=== PATIENT | female | born 1930 | race African-American/Black ===

== ENCOUNTER → 2017-11-23 | Outpatient (CLI) | payer OTHER ==
[~2017-11-23] VITALS: Ht 154.9 cm; Wt 80.2 kg
[~2017-11-23] MED LIST: ALEVE220 MG; AMARYL2 MG OR; CIPROFLOXIN HC2.5 M1 OPHTHALMIC; FLEXERIL PO; GLUCOPHAGE1000 MG OR; LISINOPRIL10 MG OR; NORCO 5-325 TA1 EACH PO; NORVASC 5 MG TAB5 MG OR; PRAVACHOL40 MG OR; PREDNISONE 20 M20 MG PO; VENTOLIN HFA 1818 GM INH; VICODIN 5-5001 EACH PO
--- NOTE | ~2017-11-23 | HPC ---
[facility] [place] [address] PAIN MANAGEMENT CONSULTATION Name: JOANN KING Room #: REG JOSE M.R.#: [id number] Admission: 11/23/17 Attend Phys: Asia Maldonado MD Discharge: Date of : 31 Report #: [id number] THIS REPORT FOR: //name// CC: Erich Maldonado DATE OF SERVICE: 11/23/2017 FOLLOWUP COMPLAINT: Low back pain that is radiating down into the right side and some aching in the right knee. FOLLOWUP HISTORY: The patient is an 87-year-old female who has been seen in the pain clinic in the past. She is followed by Song Bullard. She has undergone epidural steroid injections and gleaned benefits from these. She returns today indicating that her pain has reoccurred. She is experiencing pain which is radiating down into the lower portion of her back into the right side and down into the right knee area. She rates it as an 8/10. She notes problems with walking, standing and notes that the pain improves with use of sitting and medications. She has continued to use Naprosyn to help curtail her pain and discomfort. She has not noticed any change in bowel or bladder function. She would like to undergo another epidural steroid injection in that she received such good results in the past. She would like for this to drastically reduce her pain, which has been the case in the past. ALLERGIES: SULFA. CURRENT MEDICATIONS: Naprosyn 220 mg p.r.n. and lisinopril 10 mg. PAIN CLINIC ASSESSMENT: 1. History of osteoarthritis with arthritic changes in her right knee. 2. Height 5 feet 1 inch, weight 176 pounds, BMI is 33. 3. Vital Signs: Blood pressure 108/83, pulse 102, respiratory rate 16, room air saturation 98%. 4. Pain intensity 02/24. 5. Fall risk. The patient has not fallen in the last 3 months. 6. Blood thinning. The patient is not on a blood thinner. 7. Hypertension. The patient is being treated for hypertension. 8. Opioid therapy greater than 6 weeks. The patient is not on an opioid contract. 9. Risk assessment tool, low. 10. Functional assessment tool. 11. Recreational drug use: The patient denies use of recreational drug use. 12. Tobacco: The patient denies use of tobacco. 13. Alcohol use: The patient denies frequent use of alcoholic beverages. [facility] [address] [place] [address] PAIN MANAGEMENT CONSULTATION Name: JOANN KING Room #: REG [facility]#: [id number] Admission: 11/23/17 Attend Phys: Asia Maldonado MD Discharge: Date of : 31 Report #: [id number] PHYSICAL EXAMINATION: GENERAL: The patient is a well-developed, well-nourished black female. Slightly obese. She has fluent conversation. She is alert and oriented x 3. Affect appears appropriate. HEENT: Normocephalic, atraumatic. Extraocular eye muscles are intact. Sclerae nonicteric. Hearing, within normal limits. The patient has a quite unique hair arrangement. NECK: Good range of motion without adenopathy. HEART: Regular rate. S1, S2. CHEST: Clear to auscultation without rhonchi or rales. ABDOMEN: Slightly protuberant. EXTREMITIES: Upper extremity muscle strength is judged to be 5/5 for 86-year-old female without sensory complaints or changes. Lower extremity, the patient has pain and discomfort which is radiating down into her right side involving her knee as well as pain radiating down into her legs bilaterally with numbness and sensory changes in the lower extremity. She also has a trigger point area in the left posterior superior iliac spine area to palpation. IMPRESSION: 1. Lumbar radiculopathy involving the low back area bilaterally. 2. Right knee pain. The patient states this has been injected in the past. 3. Hypertension. RECOMMENDATIONS: We discussed treatment options with the patient. Risks and benefits of an epidural steroid injection were reviewed. Possible complication of the procedure, which could include but are not limited to infection, increased muscle soreness, headache, bleeding, spinal headache, nerve damage, paralysis were reviewed. The patient elects to proceed. PROCEDURE NOTE: The patient was taken to the fluoroscopy area. She was assisted on to the fluoroscopy table. Her back was sterilely prepped with a Betadine solution and allowed to dry. Anterior and posterior viewing using fluoroscopy as well as lateral viewing was used to direct needle placement. At the L4-L5 interspace, 0.25% bupivacaine was infiltrated. A midline approach was sighted. A total of 80 mg Depo-Medrol, 40 mg triamcinolone and 2 mL 0.25% bupivacaine was injected. Total of 5 seconds fluoro time was used. The patient tolerated the procedure well. She remained in the pain clinic for an appropriate amount of time. Her pain level had decreased to 0 at the time of discharge. She will follow up in the future as needed. We would like to thank you for letting us participate in her care. We hope she continues to improve. <ELECTRONICALLY SIGNED> By: Asia Maldonado MD 11/25/17 0902 1632 15 Asia Maldonado MD /PMT
[2017-11-23 08:54] VITALS: BP 108/83
== END | disposition home or self-care (01) ==
LOC: PAIN 07:32
DX: M54.16 Radiculopathy, lumbar region (principal); G89.29 Other chronic pain; M25.561 Pain in right knee; I10 Essential (primary) hypertension; Z88.2 Allergy status to sulfonamides; Z98.890 Other specified postprocedural states; Z79.899 Other long term (current) drug therapy; Z79.891 Long term (current) use of opiate analgesic

== ENCOUNTER 2017-12-03 10:36 | Inpatient (IN) | payer OTHER ==
[~2017-12-03] VITALS: Ht 154.9 cm; Wt 81.9 kg
--- NOTE | ~2017-12-03 | HC ---
[facility] [place] [address] CONSULTATION Name: JOANN KING Room #: 204-P [facility] IN M.R.#: [id number] Admission: 12/03/17 Attend Phys: Matty Vega MD Discharge: 12/06/17 Date of : 31 Report #: [id number] THIS REPORT FOR: //name// CC: Erich Vega REASON FOR CONSULTATION: Atrial fibrillation. HISTORY OF PRESENT ILLNESS: The patient is an 87-year-old woman with a 2-week history of a nonproductive cough and shortness of breath. She has had audible wheezing for the past several days. She presented to the Emergency Department to get something for cold and was found to be in atrial fibrillation with a rapid ventricular response. Chest x-ray demonstrated minimal left lower lobe subsegmental atelectasis. CT scan of the chest demonstrated right upper and right lower lobe pulmonary emboli and patchy left lower lobe infiltrates suggesting pneumonitis. There was a large 5 x 4.5 cm left supraclavicular mass. Lower extremity venous Dopplers are negative for deep venous thrombosis. She denies shortness of breath. She denies leg pain. There has been no recent travel or immobility. No family history of blood clots. She denies a bleeding problem. She reports blood pressures have been well controlled with lisinopril, her only medicine. There are no significant hospitalizations or surgeries other than remote resection of a sigmoid carcinoma laparoscopically. SOCIAL HISTORY: She is nonsmoker, nondrinker. FAMILY HISTORY: Unremarkable for premature coronary artery disease or clotting disorders. REVIEW OF SYSTEMS: All systems negative except as that noted above. PHYSICAL EXAMINATION: GENERAL: A pleasant woman who is alert. She is mildly dyspneic. VITAL SIGNS: Blood pressure is 140/90, heart rate of 97 and irregular. She is afebrile. HEENT: There are neither xanthelasma, subcutaneous xanthomata, oral mucosal or digital cyanosis or kyphoscoliosis present. CHEST: Reveals mid end expiratory wheezes. CARDIAC: Irregularly irregular rhythm with normal S1, S2. Jugular venous pressure is not elevated. ABDOMEN: Soft and nontender. EXTREMITIES: Without cyanosis, clubbing or edema. Radial pulses are 2+. NEUROLOGIC: She is alert with a nonfocal exam. LABORATORY DATA: Sodium 138, potassium 4.6, creatinine 1.1. ProBNP of 2800. Troponin of 0. White count 7.9, hemoglobin 13, hematocrit 41, platelet count 259. TSH 0.716. [facility] [address] [place] [address] CONSULTATION Name: JAONN KING Room #: 204-[facility]#: [id number] Admission: 12/03/17 Attend Phys: Matty Vega MD Discharge: 12/06/17 Date of : 31 Report #: [id number] IMPRESSION: 1. Pulmonary emboli, unprovoked. 2. Atrial fibrillation with a rapid ventricular response, likely precipitated by #1 above. 3. Hypertension. 4. Sigmoid cancer excision, remotely. 5. Left supraclavicular mass. 6. Hypercoagulable. RECOMMENDATIONS: 1. Change from intravenous to oral Cardizem. 2. There are 2 indications for anticoagulant therapy that being atrial fibrillation and pulmonary emboli. 3. Echocardiogram with Doppler has been ordered. At this point given the asymptomatic nature of her atrial fibrillation, a rate control strategy is recommended. I suspect that this will probably be the long-term recommendation given the asymptomatic nature of this rhythm disturbance. These issues were discussed with the patient and her family in detail. Thank you for asking me to participate in her care. <ELECTRONICALLY SIGNED> By: Blaise Bob MD, FACC 12/07/17 0801 1734 28 Blaise Bob MD, FACC /nt
--- NOTE | ~2017-12-03 | EKG ---
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: 12 : 1930 Requested By: Vernon Rao Order Number: [id number] MD: Blaise Bob Measurements Intervals [place] Rate: 139 P: [place]: QRS: -12 QRSD: 68 T: 43 QT: 297 QTc: 452 Interpretive Statements Atrial fibrillation Ventricular premature complex Low voltage, extremity leads Compared to ECG 06/28/2011 06:55:55 Ventricular premature complex(es) now present Atrial fibrillation has replaced sinus rhythm Electronically Signed On 12-04-2017 10:10:51 CDT by Blaise Bob [email or web address] <ELECTRONICALLY SIGNED> By: Blaise Bob MD, [facility] 12/04/17 1010 1054 1054 Blaise Bob MD, [facility] /EPI
--- NOTE | ~2017-12-03 | 2DMMODE ---
[facility] [address] [place] [address] 2 D/M-MODE ECHOCARDIOGRAM Name: JOANN KING Room #: 204-P ADM IN ..#: [id number] Admission: 12/03/17 Attend Phys: Matty Vega MD Discharge: Date of : 31 Date of Service: 12/05/17 0838 Report #: [id number] THIS REPORT FOR: //name// APPROVED REPORT Study performed: 12/05/2017 07:09:45 EXAM: Comprehensive 2D, Doppler, and color-flow Echocardiogram Patient Location: Bedside Room #: 204 Status: routine BSA: 1.81 HR: 107 bpm BP: 162/103 mmHg Rhythm: Atrial Fibrillation Other Information Study Quality: Good Indications Pulmonary embolism. Afib. 2D Dimensions RVDd: 36.79 mm LVEF(%): 66.58 (>50%) IVSd: 9.30 (7-11mm) LVOT Diam: 20.10 (18-24mm) LVDd: 43.83 mm PWd: 9.81 (7-11mm) Ascending Ao: 37.05 (22-36mm) LVDs: 27.81 (25-40mm) Aortic Root: 32.97 mm Mondragon's LVEF: 66.58 % Volumes Left Atrial Volume (Systole) Single Plane 4CH: 72.31 mL Single Plane 2CH: 83.27 mL LA ESV Index: 45.00 mL/m2 Aortic Valve AoV Peak Jose De Jesus.: 1.42 m/s AO Peak Gr.: 9.31 mmHg LVOT Max P.56 mmHg LVOT Max V: 1.07 m/s TONIE Vmax: 2.39 cm2 Mitral Valve MV Decel. Time: 190.73 ms MV E Max Jose De Jesus.: 1.21 m/s [facility] [place] [address] 2 D/M-MODE ECHOCARDIOGRAM Name: JOANN KING Room #: 204-P ADM IN M.R.#: [id number] Admission: 12/03/17 Attend Phys: Matty Vega MD Discharge: Date of : 31 Date of Service: 12/05/17 0838 Report #: [id number] Pulmonary Valve PV Peak Jose De Jesus.: 1.03 m/s PV Peak Gr.: 4.24 mmHg Tricuspid Valve TR Peak Jose De Jesus.: 3.20 m/s RAP Estimate: 5.00 mmHg TR Peak Gr.: 42.00 mmHg PA Pressure: 47.00 mmHg Left Ventricle The left ventricle is normal size. There is normal LV segmental wall motion. Mild basal septal hypertrophy is present. Left ventricular systolic function is normal. LVEF is 65%. This study is not technically sufficient to allow evaluation of the LV diastolic function due to atrial fibrillation. Right Ventricle The right ventricle is normal size. The right ventricular systolic function is normal. Atria Left atrium is moderately dilated. Right atrium is mildly dilated. Aortic Valve The aortic valve is moderately sclerotic, trileaflet. No aortic regurgitation is present. There is no aortic valvular stenosis. Mitral Valve The mitral valve is normal in structure. Mild mitral regurgitation. No evidence of mitral valve stenosis. Tricuspid Valve The tricuspid valve is normal in structure. Moderate tricuspid regurgitation. Estimated PAP is 45-50mmHg. Pulmonic Valve The pulmonary valve is normal in structure. Trace pulmonic regurgitation. Great Vessels The aortic root is normal in size. The ascending aorta is normal in size. IVC is normal in size and collapses >50% with inspiration. [facility] [address] [place] [address] 2 D/M-MODE ECHOCARDIOGRAM Name: JOANN KING Room #: 204-P [facility] IN M.R.#: [id number] Admission: 12/03/17 Attend Phys: Matty Vega MD Discharge: Date of : 31 Date of Service: 12/05/17 0838 Report #: [id number] Pericardium There is no pericardial effusion. <Conclusion> Left ventricular systolic function is normal. There is normal LV segmental wall motion. LVEF is 65%. Both atria are dilated. The aortic valve is moderately sclerotic, trileaflet. No aortic regurgitation or stenosis The mitral valve is normal in structure. Mild mitral regurgitation. Moderate tricuspid regurgitation. Estimated pulmonary artery pressure of 45-50mmHg. There is no pericardial effusion. <ELECTRONICALLY SIGNED> By: Blaise Bob MD, [facility] 12/05/17837 7 7 Blaise Bob MD, [facility] /INF
--- NOTE | ~2017-12-03 | EKG ---
[address] [address] ELECTROCARDIOGRAM REPORT Name: JOANN KING Room #: 204-P ADM IN M.R.#: [id number] Admission: 12/03/17 Attend Phys: Matty Vega MD Discharge: Date of : 31 Report #: [id number] THIS REPORT FOR: //name// [facility] Test Date: 2017-12-04 Test Time: 10:30:27 Pat Name: JOANN KING Department: Room: 204 Gender: F Physician Assistant Primary Care: MARY : 1930 Requested By: Blaise Bob Order Number: [id number] MD: Venancio Arellano Measurements Intervals [place] Rate: 110 P: [place]: QRS: -9 QRSD: 70 T: -4 QT: 332 QTc: 450 Interpretive Statements Atrial fibrillation Probable anterior infarct, age indeterminate Compared to ECG 12/03/2017 10:54:42 Myocardial infarct finding now present Ventricular premature complex(es) no longer present Electronically Signed On 12-05-2017 7:01:09 CDT by Venancio Arellano [email or web address] <ELECTRONICALLY SIGNED> By: Venancio Arellano MD 12/05/17 0701 1030 1030 Venancio Arellano MD /EPI
[2017-12-03 10:45] VITALS: BP 184/116
[2017-12-03 11:18] LABS: HEMATOCRIT 41.8 % (37.0-47.0); HEMOGLOBIN 13.9 gm/dL (12.0-15.0); MCHC 33.2 g/dL (28.0-37.0); MCV 90.5 fL (80.0-100.0); PLATELET COUNT 259 thou/uL (150-400); RBC 4.62 mil/uL (4.20-5.00); RDW 15.1 % (10.5-14.5); WBC 7.9 thou/uL (4.0-11.0)
[2017-12-03 11:27] LABS: ANION GAP 8 mmol/L (7-16); BUN 21 mg/dL (7-18); CALCIUM 9.8 mg/dL (8.5-10.1); CHLORIDE 106 mmol/L (98-107); CO2 24 mmol/L (21-32); CREATININE 1.1 mg/dL (0.6-1.0); GLUCOSE 173 mg/dL (74-106); POTASSIUM 4.6 mmol/L (3.5-5.1); SODIUM 138 mmol/L (136-145)
[2017-12-03 11:35] LABS: TROPONIN-I < 0.04 ng/mL (<0.06)
[2017-12-03 11:43] LABS: ABSOLUTE NEUTROPHILS 5.4 thou/uL (1.4-8.2)
[2017-12-03 11:44] LABS: ANISOCYTOSIS 1+; POLYCHROMASIA OCCASIONAL
[2017-12-03 14:02] VITALS: BP 156/84
[2017-12-03 14:28] VITALS: BP 156/84
[2017-12-03 15:35] VITALS: BP 146/91
[2017-12-03 17:19] VITALS: BP 167/94
[2017-12-03 19:38] VITALS: BP 155/98
[2017-12-04] VITALS (7 sets, daily range): BP systolic 128–176; BP diastolic 70–106
[2017-12-04 04:30] LABS: HEMOGLOBIN 13.2 gm/dL (12.0-15.0); MCH 29.7 pg (26.0-34.0); MCV 92.6 fL (80.0-100.0); RBC 4.43 mil/uL (4.20-5.00); RDW 15.5 % (10.5-14.5); WBC 7.7 thou/uL (4.0-11.0)
[2017-12-04 04:39] LABS: CALCIUM 9.8 mg/dL (8.5-10.1); CREATININE 1.3 mg/dL (0.6-1.0); POTASSIUM 4.2 mmol/L (3.5-5.1)
[2017-12-05 04:12] VITALS: BP 162/103
[2017-12-05 16:17] VITALS: BP 134/91
[2017-12-05 19:45] VITALS: BP 134/84
[2017-12-06 04:13] LABS: CALCIUM 9.5 mg/dL (8.5-10.1); CREATININE 1.2 mg/dL (0.6-1.0)
[2017-12-06 04:23] VITALS: BP 133/83
[2017-12-06 04:26] LABS: ABSOLUTE NEUTROPHILS 5.7 thou/uL (1.4-8.2); BASOPHILS 0.1 % (0.0-2.0); HEMATOCRIT 37.2 % (37.0-47.0); HEMOGLOBIN 12.1 gm/dL (12.0-15.0); LYMPHOCYTES 7.7 % (24.0-44.0); MCH 29.9 pg (26.0-34.0); MCHC 32.5 g/dL (28.0-37.0); MCV 92.3 fL (80.0-100.0); PLATELET COUNT 244 thou/uL (150-400); POLYS 88.2 % (36.0-66.0); RBC 4.03 mil/uL (4.20-5.00); RDW 15.3 % (10.5-14.5); WBC 6.5 thou/uL (4.0-11.0)
[2017-12-06 08:50] VITALS: BP 127/81
[2017-12-06] MEDS ORDERED: AZITHROMYCIN 2250 MG PO (09:45)
[2017-12-06] MEDS ORDERED: KEFLEX500 M1 PO (09:45)
[2017-12-06] MEDS ORDERED: XARELTO15 MG PO (09:46)
[2017-12-06] MEDS ORDERED: XARELTO20 MG PO (09:46)
[2017-12-06] MEDS ORDERED: HYDROCHLOROTH12.5 M1 PO (09:47)
[2017-12-06 10:39] VITALS: BP 127/81
[2017-12-06 11:14] VITALS: BP 127/81
[2017-12-07 04:11] LABS: GLYCOHEMOGLOBIN (HGB A1C) 6.8 % (4.8-5.6)
== END 2017-12-06 12:25 | disposition home health service (06) | DRG 871 ==
LOC: ER 10:36 → EROBS 13:35 → 2N 13:35 → ENTRNSPT 12-06 11:36 → EDTRNSPTSTS 12-06 11:39 → 2N 12-06 12:25
PROVIDERS: Family Medicine; Hospitalist; Nurse Practitioner
DX: A41.9 Sepsis, unspecified organism (principal); I26.99 Other pulmonary embolism without acute cor pulmonale; J18.9 Pneumonia, unspecified organism; D68.59 Other primary thrombophilia; I48.91 Unspecified atrial fibrillation; I10 Essential (primary) hypertension; E11.9 Type 2 diabetes mellitus without complications; E07.9 Disorder of thyroid, unspecified; Z60.2 Problems related to living alone; F32.9 Major depressive disorder, single episode, unspecified; R91.1 Solitary pulmonary nodule; Z79.899 Other long term (current) drug therapy; Z88.2 Allergy status to sulfonamides; Z85.038 Personal history of other malignant neoplasm of large intestine
CPT/HCPCS: 10194

== ENCOUNTER 2019-05-22 11:18 | Inpatient (IN) | payer OTHER ==
[~2019-05-22] VITALS: Ht 175.3 cm; Wt 67.6 kg
[2019-05-22] VITALS (32 sets, daily range): BP systolic 101–149; BP diastolic 56–102
--- NOTE | ~2019-05-22 | HC ---
[facility] [place] [address] [place] [address] CONSULTATION Name: JOANN KING Room #: 208- ADM IN M.R.#: [id number] Admission: 05/22/19 Attend Phys: Antony Darden MD Discharge: Date of : 31 Report #: [id number] THIS REPORT FOR: //name// CC: Antony Do REQUESTING PHYSICIAN: Dr. Darden. 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 She also had AFib with RVR on admit. She was apparently nonadherent to her regimen at her prior facility for medication treatment. However, the patient has not had significant improvement in her overall responsiveness or ability to participate in therapy. She has had a Dobbhoff placed since then for nutritional value. However, family is favoring at this time a palliative care approach. The patient is currently not able to respond in a meaningful manner with regards to my questions. PAST MEDICAL HISTORY: Atrial fibrillation, hypertension, history of pulmonary embolism, history of sigmoid cancer in remission. SOCIAL HISTORY: Lives [place]. Daughter is present for my interview, has both the granddaughter and grandson. I did speak with granddaughter as well. MEDICATIONS: Pepcid, Eliquis, Toprol, Cardizem. ALLERGIES: SULFA. FAMILY HISTORY: Noncontributory. REVIEW OF SYSTEMS: Gen, unable to obtain review of systems at this point in time due to responsiveness. PHYSICAL EXAMINATION: Includes: VITAL SIGNS: Temperature 37.4, pulse 98, respirations 18, blood pressure 151/94, 96% on nasal cannula. GENERAL: The patient will awaken to verbal stimuli, certainly unable to ascertain orientation at this time. She does not appear to be in distress currently. HEENT: No scleral icterus appreciated, no conjunctival injection. CARDIOVASCULAR: Appears to be slightly tachycardic at this time and irregularly irregular rate and rhythm. RESPIRATORY: Lungs appear to be clear to auscultation at least anteriorly. ABDOMEN: Soft, nondistended, appears to have no grimacing to palpation. [address] [address] CONSULTATION Name: JOANN KING Room #: [facility] ADM IN M.R.#: [id number] Admission: 05/22/19 Attend Phys: Antony Darden MD Discharge: Date of : 31 Report #: [id number] LABORATORY DATA: These include on May 22 creatinine 2.2. Most recent hemoglobin 11.7. Most recent creatinine 1.3, potassium 3.4. ASSESSMENT AND PLAN: 1. Cerebrovascular accident, appears to be catastrophic in nature. It would be difficult to say her recovery ability; however, it appears that that is not a likely scenario in which the patient would have to recovery to the quality of life that her family and the patient would be acceptable at this point in time. Discussed approximately 40 minutes at advanced care planning with daughter, granddaughter and then discussed with social media marketing manager with regards to code status, which is confirmed to be DNR and that they wished to either go to an inpatient hospice facility, which is possible that the patient would not be accepted to if not a long-term care with the ability to have hospice there. They are definitely favoring hospice in either case and did discuss measures to progress towards including the potential addition of Roxanol and Ativan if needed to see the transition between facility and inpatient hospice. We will at this time write for morphine and Ativan. 2. Aspiration pneumonia, again likely secondary to above, overall portends a poor prognosis for the patient. 3. Left hemiparesis. Again, the patient with a dense hemiparesis at this time, possible rehabilitation would be very difficult. 4. Dysphagia. Again, this contributes to overall rehabilitation ability at this time. Thank you very much for this consultation. Please contact me for any further questions regarding this patient. By: 21 7 Vipin Crockett DO /nt
[~2019-05-22 11:18] MED LIST changes: +AZITHROMYCIN 2250 MG PO; +HYDROCHLOROTH12.5 M1 PO; +KEFLEX500 M1 PO; +XARELTO15 MG PO; +XARELTO20 MG PO
[2019-05-22 11:32] LABS: BE(vivo) -2.3 mmol/L (-2 to +3); HCO3 22.9 mmol/L (22.0-26.0); PCO2 41.1 mmHg (35.0-45.0); PO2 417.5 mmHg (80.0-100.0); pH 7.364 (7.360-7.450); sO2 99.8 % (92.0-98.0)
[2019-05-22 11:41] LABS: ABSOLUTE NEUTROPHILS 10.4 thou/uL (1.4-8.2); BASOPHILS 0.3 % (0.0-2.0); HEMATOCRIT 51.7 % (37.0-47.0); HEMOGLOBIN 16.8 gm/dL (12.0-15.0); LYMPHOCYTES 3.6 % (24.0-44.0); MCH 29.9 pg (26.0-34.0); MCHC 32.5 g/dL (28.0-37.0); MCV 91.9 fL (80.0-100.0); MONOCYTES 11.1 % (1.0-8.0); PLATELET COUNT 132 thou/uL (150-400); RBC 5.63 mil/uL (4.20-5.00); RDW 15.5 % (10.5-14.5); WBC 12.2 thou/uL (4.0-11.0)
[2019-05-22 11:49] LABS: CALCIUM 11.4 mg/dL (8.5-10.1); CREATININE 2.2 mg/dL (0.6-1.0); POTASSIUM 4.3 mmol/L (3.5-5.1); URINE BLOOD NEGATIVE (Negative); URINE COLOR YELLOW; URINE GLUCOSE-RANDOM* NEGATIVE (Negative); URINE KETONES NEGATIVE (Negative); URINE LEUKOCYTES-REFLEX NEGATIVE (Negative); URINE NITRITE-REFLEX NEGATIVE (Negative); URINE PROTEIN (DIPSTICK) TRACE (Negative); URINE SPECIFIC GRAVITY >= 1.030 (1.005-1.035)
[2019-05-22 11:51] LABS: URINE BILIRUBIN NEGATIVE (Negative); URINE CLARITY SL HAZY
[2019-05-22 11:52] LABS: ICTOTEST (BILI CONFIRMATORY) Negative (Negative)
[2019-05-22 11:59] LABS: ALBUMIN 3.2 g/dL (3.4-5.0); TOTAL PROTEIN 7.7 g/dL (6.4-8.2); TROPONIN-I 0.33 ng/mL (<0.06)
[2019-05-22 12:11] LABS: AMP/METHAMP Negative (Negative); BARBITURATES Negative (Negative); BENZODIAZEPINES Negative (Negative); COCAINE Negative (Negative); METHADONE Negative (Negative); OPIATES Negative (Negative); PCP Negative (Negative)
--- NOTE | 2019-05-22 15:01 | NUR ---
TESHA KING (DAUGHTER) - [id number]
--- NOTE | 2019-05-22 17:07 | EKG ---
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 Engineer: SHARITA : 1930 Requested By: Suresh Edwards Order Number: [id number] MD: Blaise Bob Measurements Intervals [place] Rate: 144 P: [place]: QRS: -3 QRSD: 89 T: 141 QT: 316 QTc: 489 Interpretive Statements Atrial fibrillation with rapid V-rate Repolarization abnormality, prob rate related Compared to ECG 12/04/2017 10:30:27 ST and T wave abnormality is more prominent Electronically Signed On 05-22-2019 17:07:20 FIRE SPRINKLER DESIGNER by Blaise Bob [email or web address] <ELECTRONICALLY SIGNED> By: Blaise Bob MD, [facility] 05/22/19 6327 1121 1121 Blaise Bob MD, [facility] /EPI
--- NOTE | 2019-05-22 18:13 | NUR ---
Patient arrived to ICU after receiving report from ED staff. ADMISSION CRITERIA DOCUMENTED. FAMILY AND FRIENDS VISITING PATIENT. CARDIZEM GTT INFUSING. PLAN OF CARE IS TO CONTINUE TO MONITOR PATIENT NEUROLOGIC STATUS, MONITOR RHYTHM AND RATE, AND OXYGENATION. PATIENT GOAL IS TO IMRPOVE MENTAL AWARENESS AND PHYSICAL MOVEMENT.
--- NOTE | 2019-05-22 22:58 | NUR ---
PT MORE RESPONSIVE CURRENTLY. ABLE TO RESPOND TO NAME, FOLLOW SIMPLE COMMANDS SUCH SQUEEZING MY HAND WITH HER RIGHT HAND, AND ABLE TO FEEL ME TOUCH HER RIGHT SIDE. SPEECH DIFFICULT TO UNDERSTAND MOST TIMES. C COLLAR IN PLACE, AND PT IS RESTLESS AT TIMES. NOTED MOVEMENT OF RIGHT ARM AND LEG, UNABLE TO RAISE ON COMMAND. NO NOTED MOVEMENT ON LEFT SIDE OF BODY. WEAK COUGH, ASSIST WITH COUGHING AND DEEP BREATHING WHILE AWAKE. NIH SCALE CHARTED. ON VENTIMASK AT 35%, SATS ABOVE 90%. NOTED ABNORMAL POSITIONING OF LEFT HIP, TALKED TO JOAQUÍN YIN AT 2255, XR OF HIP/PELVIS ORDERED FOR AM. SPINAL PRECAUTIONS MAINTIANED WITH TURNS. PT EDUCATED ABOUT POSITIONING, PAIN, AND SITUATION. WILL CONTINUE TO MONITOR.
[2019-05-23] VITALS (84 sets, daily range): BP systolic 96–159; BP diastolic 46–110
[2019-05-23 06:11] LABS: CREATININE 1.8 mg/dL (0.6-1.0); MAGNESIUM 1.9 mg/dL (1.8-2.4); POTASSIUM 3.6 mmol/L (3.5-5.1)
[2019-05-23 06:16] LABS: CHOLESTEROL 200 mg/dL (<200); HDL CHOLESTEROL 31 mg/dL (>40); LDL CHOLESTEROL 129 mg/dL (<100); TC:HDL 6.5 Ratio (Not establshd); TRIGLYCERIDE 200 mg/dL (<150); VLDL 40 mg/dL (<40)
[2019-05-23 06:19] LABS: SERUM ASSESSMENT Clear
[2019-05-23 07:01] LABS: MCH 29.7 pg (26.0-34.0); MCV 92.8 fL (80.0-100.0); RBC 4.64 mil/uL (4.20-5.00); RDW 15.7 % (10.5-14.5); WBC 8.4 thou/uL (4.0-11.0)
[2019-05-23 07:10] LABS: GLYCOHEMOGLOBIN (HGB A1C) 5.9 % (4.8-5.6)
[2019-05-23 07:19] LABS: HEMOGLOBIN 13.8 gm/dL (12.0-15.0)
--- NOTE | 2019-05-23 09:45 | NUR ---
Was off unit to MRI from approximately 804 until 934. C-Spine precautions maintained during transfers and test. She was monitored with cardiac and o2 saturation during MRI.
--- NOTE | 2019-05-23 10:53 | NUR ---
Case opened to follow for dc planning. Pt is currently in ICU d/t CVA. Workup in progress. Lidder visited with the pt's dtr Christal. She indicates that the pt has lived indep in a [facility] for 30[facility] years. She has no steps to enter but 12 up to her bedroom/bath. She has a cane she keeps in the car but does not use an assistive device. She has reported some falls in the past few months. 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 She manages her own meds and day to day adl's. Dtr lives locally and is supportive. She takes her to dr reza and helps with errands. She is aware that the pt will likely need some level of rehab and may not be able to return to her current living situation. Cm role introduced. Will ask for rehab and therapy evals as appropriate. Pt's pcp is Dr. Do.
--- NOTE | 2019-05-23 10:55 | 2DMMODE ---
[facility] [place] [employer] [place] [address] 2 D/M-MODE ECHOCARDIOGRAM Name: JOANN KING Room #: 247-P ADM IN M.R.#: [id number] Admission: 05/22/19 Attend Phys: Antony Darden MD Discharge: Date of : 31 Report #: [id number] THIS REPORT FOR: //name// APPROVED REPORT Study performed: 05/23/2019 09:32:54 EXAM: Comprehensive 2D, Doppler, and color-flow Echocardiogram Patient Location: ICU Room #: [facility] Status: routine BSA: 1.79 HR: 108 bpm BP: 139/79 mmHg Rhythm: Atrial Fibrillation Other Information Study Quality: Good Indications Afib with RVR, CVA. Hx: Afib, HTN, PE. Echo Enhancing Agent Indication: Rule out Shunt Agent(s) / Amount(s) Used: Agitated Saline 6 cc 2D Dimensions RVDd: 37.54 mm IVSd: 12.00 (7-11mm) LVOT Diam: 20.87 (18-24mm) LVDd: 35.00 mm PWd: 12.00 (7-11mm) Ascending Ao: 36.64 (22-36mm) LVDs: 25.06 (25-40mm) Aortic Root: 33.65 mm Volumes Left Atrial Volume (Systole) Single Plane 4CH: 68.59 mL Single Plane 2CH: 93.90 mL LA ESV Index: 47.00 mL/m2 Aortic Valve AoV Peak Jose De Jesus.: 1.53 m/s AO Peak Gr.: 9.47 mmHg LVOT Max P.82 mmHg LVOT Max V: 0.83 m/s TONIE Vmax: 1.85 cm2 [facility] [address] [place] [address] 2 D/M-MODE ECHOCARDIOGRAM Name: JOANN KING Room #: [address] [place] [address] IN ..#: [id number] Admission: 05/22/19 Attend Phys: Antony Darden MD Discharge: Date of : 31 Report #: [id number] Mitral Valve MV Decel. Time: 193.82 ms MV E Max Jose De Jesus.: 0.95 m/s Pulmonary Valve PV Peak Jose De Jesus.: 0.95 m/s PV Peak Gr.: 3.61 mmHg Tricuspid Valve TR Peak Jose De Jesus.: 3.21 m/s RAP Estimate: 5.00 mmHg TR Peak Gr.: 41.16 mmHg PA Pressure: 46.00 mmHg Left Ventricle The left ventricle is normal size. Mild concentric left ventricular hypertrophy. The left ventricular systolic function is normal. LVEF is 50-55%. This study is not technically sufficient to allow evaluation of the LV diastolic function due to atrial fibrillation. Right Ventricle The right ventricle is normal size. The right ventricular systolic function is low normal. Atria Left atrium is severely dilated. No shunting noted by contrast bubble injection. Right atrium is moderately dilated. Aortic Valve The Aortic valve is moderately sclerotic. Trace aortic regurgitation. There is no aortic valvular stenosis. Mitral Valve The mitral valve is normal in structure; mildly thickened. Mild mitral regurgitation. Tricuspid Valve The tricuspid valve is normal in structure. Moderate tricuspid regurgitation. Estimated PAP is 45-50mmHg. Pulmonic Valve The pulmonary valve is normal in structure. Trace pulmonic regurgitation. Great Vessels The aortic root is normal in size. The ascending aorta is normal in size. IVC is normal in size and collapses >50% with [facility] [address] [place] [address] 2 D/M-MODE ECHOCARDIOGRAM Name: JOANN KING Room #: 247-P ADM IN M.R.#: [id number] Admission: 05/22/19 Attend Phys: Antony Darden MD Discharge: Date of : 31 Report #: [id number] inspiration. Pericardium There is no pericardial effusion. <Conclusion> The left ventricle is normal size. LVEF is 50-55%. Left atrium is severely dilated. Right atrium is moderately dilated. The Aortic valve is moderately sclerotic. Trace aortic regurgitation. The mitral valve is normal in structure; mildly thickened. Mild mitral regurgitation. The tricuspid valve is normal in structure. Moderate tricuspid regurgitation. Estimated PAP is 45-50mmHg. The pulmonary valve is normal in structure. Trace pulmonic regurgitation. There is no pericardial effusion. No shunting noted by contrast bubble injection. <ELECTRONICALLY SIGNED> By: Dominic Echols MD 05/23/19 1055 1055 1055 Dominic Echols MD /INF
--- NOTE | 2019-05-23 17:01 | NUR ---
NURSE UPDATED PATIENTS DAUGHTER THIS AFTERNOON. NURSE TALKED WITH DR. CRAWFORD ABOUT CARDIZEM GTT, BLOOD PRESSURE, NEURO STATUS, AND BLOOD GLUCOSE LEVEL TODAY. NURSE THEN GAVE REPORT TO ANOTHER RN FOR CONTINUATION OF CARE.
[2019-05-24] VITALS (19 sets, daily range): BP systolic 106–172; BP diastolic 48–96
--- NOTE | 2019-05-24 04:16 | NUR ---
PT DROWSY, RESPONSE TO NAME OCCASIONALLY. DOESN'T FOLLOW COMMANFS. NIH @ 22, FULL MOVEMENT OF RIGHT SIDE. MINIMAL MOVEMENT OF LEFT LEG NOTED. DENIED PAIN WHEN ASK. VSS. AFEBRILE. UNABLE TO CLEAR SECRETIONS CURRENTLY. TOLERATING 2L NC. NO COMPLAINS PRESENTLY. WILL CONTINUE TO MONITOR PT
[2019-05-24 05:23] LABS: HEMATOCRIT 40.4 % (37.0-47.0); HEMOGLOBIN 12.8 gm/dL (12.0-15.0); MCH 29.4 pg (26.0-34.0); MCHC 31.6 g/dL (28.0-37.0); RBC 4.34 mil/uL (4.20-5.00); RDW 15.9 % (10.5-14.5); WBC 7.2 thou/uL (4.0-11.0)
[2019-05-24 05:29] LABS: CALCIUM 10.9 mg/dL (8.5-10.1); CREATININE 1.5 mg/dL (0.6-1.0); POTASSIUM 3.8 mmol/L (3.5-5.1)
--- NOTE | 2019-05-24 18:25 | NUR ---
PATIENT REMAINS DROWSY AND ONLY FOLLOWING COMMANDS AT TIMES. PATIENT WAS ABLE TO WAKE UP AND ANSWER SOME YES/NO QUESTIONS. NIH HAS BEEN 20 THROUGHOUT MY SHIFT. PATIENT NOT AWARE OF LEFT SIDE OF BODY. MRI OF HEAD COMPLETE AND SHOWS AN ACUTE STROKE TO RIGHT POSTIOR PARIETAL AND TEMPORAL LOBES. UNABLE TO DO SWALLOW STUDY TODAY AND IT DOES NOT SEEM THAT THE PATIENT CAN CLEAR HER OWN SECREATIONS. PATIENT HAS BEEN IN A CONTROLLED AFIB FOR THIS SHIFT. NO FURTHER CONCERNS. WILL CONTINUE TO MONITOR AND CARE PER PLAN OF CARE.
--- NOTE | 2019-05-24 22:38 | NUR ---
Patient drowsy and only makes incomprehensible sounds when spoken to although she does weakly squeeze this RN's hand with her right hand and move her right toes. No movement noted on the left side. Patient's daughter updated on current status. VS stable and no distress is noted. Will continue to monitor.
[2019-05-25] VITALS (17 sets, daily range): BP systolic 93–163; BP diastolic 56–86
[2019-05-25 08:37] LABS: HEMATOCRIT 38.4 % (37.0-47.0); HEMOGLOBIN 12.2 gm/dL (12.0-15.0); MCH 29.6 pg (26.0-34.0); MCHC 31.7 g/dL (28.0-37.0); MCV 93.4 fL (80.0-100.0); RBC 4.11 mil/uL (4.20-5.00); RDW 15.8 % (10.5-14.5); WBC 7.6 thou/uL (4.0-11.0)
--- NOTE | 2019-05-25 09:25 | NUR ---
Pt has been npo 4 days and no oral intake estimated 3 days prior admit. If going to pursue aggressive treatment, would recommend dobhoff and start jevity 1.5 at 25ml/hr and progress to goal 55ml/hr. Defer any fluid needs to physician.
--- NOTE | 2019-05-25 12:21 | EKG ---
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: HIEN : 1930 Requested By: Nakul Nair Order Number: [id number] MD: Horacio Oliveros Measurements Intervals Ralph Rate: 98 P: GA: QRS: -42 QRSD: 84 T: 198 QT: 375 QTc: 479 Interpretive Statements Atrial fibrillation Inferior infarct, old Anterior infarct, age indeterminate Compared to ECG 05/22/2019 11:21:31 Myocardial infarct finding now present Early repolarization no longer present Electronically Signed On 05-25-2019 12:21:06 REEL ASSEMBLER by Horacio Oliveros [email or web address] <ELECTRONICALLY SIGNED> By: Horacio Oliveros MD 05/25/19 1221 4 4 Horacio Oliveros MD /SILVIA
--- NOTE | 2019-05-25 18:07 | NUR ---
PATIENT REPORT CALLED TO JACINTO DIXON ON CCU FOR CONTINUATION OF CARE. SHE WAS TAKEN TO NEW ROOM VIA BED WITH ONE WIG, AND ONE PART OF HER DENTURES. PATIENTS DAUGHTER TOOK HOME ANOTHER WIG, HER HAIR NET, AND HER HAIR BONNET. NURSE TALKED WITH DR. IRVIN, DR. ORTEGA, AND DR. CRAWFORD ABOUT ANTICOAGULATION. NO NEW ORDERS AT THIS TIME, SECONDARY TO HER PLATELET COUNT PER DR. CRAWFORD. NURSE TALKED WITH DR. ORTEGA ABOUT NUTRITION. DOBHOFF PLACED AND XRAY CONFIRMED PLACEMENT. JEVITY TO BE STARTED. PATIENT NOT PROGRESSING TOWARDS PLAN OF CARE OF IMPROVED NEURO STATUS, INCREASED STAMINA FOR HELPING WITH ACTIVITY, OR IMPROVING AIRWAY CLEARANCE FROM A COUGH STANDPOINT. PATIENTS DAUGHTER UPDATED ABOUT PATIENTS STATUS WELL PATIENT MOVING TO A NEW ROOM.
--- NOTE | 2019-05-25 18:27 | NUR ---
PT CARE ASSUMED APPROX 1800. PT DOES NOT SUSTAIN WAKELFULNESS OR VERBALIZE. VSS. AFIB ON THE MONITOR WITH CONTROLLED RATES. PT DOES NOT APPEAR UNCOMFORTABLE. MICHEAL PATENT. DARLEEN PATENT. AWAITING TUBE FEEDING ORDERS PER ICU NURSE THAT TRANSFERRRED PT. IVF RESUMED. NO DISTRESS NOTED.
[2019-05-26 00:07] VITALS: BP 130/64
--- NOTE | 2019-05-26 05:07 | NUR ---
SHIFT NOTE: PATIENT RESTING WITH NO ACUTE DISTRESS. RECEIVED IN BED. WITH ASSESSMENT PT OPEN EYES OCCASSIONALLY BUT DOES NOT FOLLOW COMMANDS. SOME SPONTANOUS MOVEMENT NOTED OCCASSIONALLY. REMAIN NON VERBAL. INCOMPREHENSIVE SOUNDS NOTED. RESTING WITH NO S/S OF PAIN/DISCOMFORT.CHECK AND CHANGE WITH REPOSITIONING Q2HR AND PRN.WOUND NOTED TO THE LEFT SIDE OF HER FACE AND LEFT BREAST.TUBE FEEDING AND TOLERATING. NO MAJOR CONCERN. WILL CONTINUE WITH CURRENT PLAN OF CARE AND TO MONITOR.
[2019-05-26 05:30] VITALS: BP 128/79
[2019-05-26 05:33] LABS: HEMATOCRIT 37.2 % (37.0-47.0); HEMOGLOBIN 11.7 gm/dL (12.0-15.0); MCH 29.2 pg (26.0-34.0); MCHC 31.4 g/dL (28.0-37.0); MCV 93.1 fL (80.0-100.0); RDW 15.6 % (10.5-14.5); WBC 10.3 thou/uL (4.0-11.0)
[2019-05-26 08:05] VITALS: BP 127/53
[2019-05-26 11:40] VITALS: BP 109/51
[2019-05-26 15:40] VITALS: BP 116/59
--- NOTE | 2019-05-26 18:07 | NUR ---
ASSUMED CARE 0700. SLEEPING, NON VERBAL SOUNDS, POORLY CLEARS THROAT/COUGH, SUCTIONED WITH YONKER AND PROVIDED ORAL CARE. REPOSITIONED, NO BM NOTED AT THIS TIME. FEEDING CHANGED TO GLUCERNA PER DR ORTEGA STARTED AT 1800 AT GOAL RATE STARTED AT 1200. LEFT IV REMOVED DUE TO INFILTRATION.BURTON PATENT. FALL PRECAUTION IN PLACE. STAFF ANTICIPATE NEEDS.
[2019-05-26 20:35] VITALS: BP 143/68
--- NOTE | 2019-05-26 21:26 | NUR ---
ASSESSMENT COMPLETED AT THIS TIME. PT SLEEPING. MAKES SOME NOISES WHEN TALKED TO. SHE WILL SOMETIMES TURN FACE TO THE RIGHT AND LIGHLY SQUEEZE MY HAND WITH HER R HAND.RESPONDS TO HER NAME BY MAKING NOISE TOO.SHE IS ON /NC AND SATTING OKAY >95%. U/O NOTED TO BE DARK/CLOUDY WITH SOME SEDIMENTS. DOBHOFF IN PLACE WITH FEEDINGS AT GOAL RATE.Q2 HR TURNS PROVIDED.BLE AND BUE ELEVATED ON PILLOWS. DRSG TO L BREAST IS C/D/I.SCDS AND TEDS IN PLACE.AFIB ON TELE-TOPROL GIVEN.WILL CONTINUE TO MONITOR AND WITH POC TILL EOS.
[2019-05-27 04:28] LABS: CALCIUM 10.2 mg/dL (8.5-10.1); CREATININE 1.3 mg/dL (0.6-1.0); POTASSIUM 3.4 mmol/L (3.5-5.1)
[2019-05-27 06:06] VITALS: BP 116/73
[2019-05-27 12:15] VITALS: BP 127/82
--- NOTE | 2019-05-27 15:57 | NUR ---
ASSUMED CARE AT 0700, SHIFT ASSESSMENT DONE, MEDS GIVEN, VSS. PT NON-VERBAL, RESPONDS TO PAIN OR TOUCH BY JSUT OPENING THE RIGHT EYE OR MOVING THE RIGHT ARM. COMPLETE FLACIDITY ON THE LEFT SIDE. ON 2LNC. AFIB ON THE MONITOR, RATE CONTROLLED. BURTON TO DEPDENDENT DRAINAGE, ONE BM TODAY. RECEIVING IV FLUIDS AND FEEDING THROUGH JUNITO ORTA FEDDING WELL. HOPSICE CONSULT CALLED IN, DR HORTON NOT BAROMETERS CALIBRATOR TODAY, WILL VISIT TOMORROW. WILL CONTINUE TO ASSESS AND ASSIST WITH ADLs NEEEDED.
[2019-05-27 20:42] VITALS: BP 127/60
--- NOTE | 2019-05-28 04:01 | NUR ---
ASSUMED CARE AT 1900. PT NON-VERBAL. Q2 TURNS. Q6 BLOOD BG CHECKS. PT RESPONDS TO PAIN STIMULI. SLIGHTLY ELEVATED PULSE IN LOWER 100S. VITALS STABLE. POC FOLLOW. PT KEPT COMFORTABLE POSSIBLE. WILL CONTINUE TO MONITOR.
[2019-05-28 05:58] VITALS: BP 151/94
[2019-05-28 08:00] VITALS: BP 138/67
--- NOTE | 2019-05-28 09:47 | NUR ---
Followup: started on enteral nutrition however chart reviewed and noted consult with family/Dr Crockett pending to discuss further plan of care. Will follow up again in 1-2 days to assess TF if this continues.
--- NOTE | 2019-05-28 10:58 | NUR ---
FAXED REFERRAL TO [facility] RECEIVED CONFIRMATION AND LEFT MSG WITH DAYRON IN ADM. TO NOT SUBMIT FOR AUTH YET FAMILY LOOKING AT A COUPLE FACILITIES. FAXED REFERRAL TO [facility] RECEIVED CONFIRMATION AND LEFT MSG WITH EM IN ADM TO NOT SUBMIT FOR AUTH. DP TO FOLLOW.
[2019-05-28 12:15] VITALS: BP 1174/53
--- NOTE | 2019-05-28 14:36 | NUR ---
FAXED REFERRAL TO [facility] SPOKE WITH DAYRON IN ADM SHE RECEIVED REFERRAL AND THAT THEY DON REVIEWED AND BELIEVES PT SHOULD BE LTC WITH HOSPICE. NOTIFIED SW OF THEIR DECISION. FAXED REFERRAL TO [facility] SPOKE WITH EM IN ADM SHE RECEIVED REFERRAL BUT CANNOT ACCEPT PT HAS NOT OUT OF NETWORK BENEFITS. DP TO FOLLOW.
--- NOTE | 2019-05-28 15:27 | NUR ---
Dr Crockett met with the pt's dtr this am as well as cm. Dtr interested in hospice care vs peg placement. Options reviewed. She would consider [facility] or [facility] for ltc private pay with hospice, but prefers [facility] if the pt qualifies. Dtr aware that she may not qualify for in hospice right away. Hospice referral initiated with [facility] for both GIP at the hospice house and to see if they have an residential beds. Dtr does not have legal dpoa documents but is on the pt's bank accounts and able to access funds to pay for the pt's care. Support provided. Will arrange hospice meeting and eval for the am. Admissions liason at and [facility] updated. Pt appears comfortable. Pt's dtr is keeping her brother updated. Nursing updated.
--- NOTE | 2019-05-28 16:07 | NUR ---
FAXED REFERRAL TO HOSPICE SPOKE WITH KRISTY IN INTAKE SHE RECEIVED REFERRAL AND WILL REVIEW.
[2019-05-28 16:54] VITALS: BP 146/86
[2019-05-28 20:42] VITALS: BP 125/101
[2019-05-29 05:53] VITALS: BP 147/76
--- NOTE | 2019-05-29 08:09 | HC ---
[facility] [place] [address] CONSULTATION Name: JOANN KING Room #: [facility] ADM IN M.R.#: [id number] Admission: 05/22/19 Attend Phys: Antony Darden MD Discharge: Date of : 31 Report #: [id number] THIS REPORT FOR: //name// CC: Antony Do DATE OF SERVICE: 05/23/2019 HISTORY OF PRESENT ILLNESS: This is an 88-year-old female patient with a history of hypertension, atrial fibrillation, presented by EMS with unresponsiveness. She was found down on the floor on her left side with left-sided weakness. She has developed some areas of necrosis and I have been asked to see her with regard to wound care. The patient can provide no information about herself. PAST MEDICAL HISTORY: Atrial fibrillation, previous pulmonary embolus, hypertension. SOCIAL HISTORY: Positive for some alcohol use. Negative for tobacco use. FAMILY HISTORY: Unknown. REVIEW OF SYSTEMS: Unobtainable due to the patient's condition. MEDICATIONS: Include Xarelto. ALLERGIES: SULFA. PHYSICAL EXAMINATION: VITAL SIGNS: Temperature 36.1, pulse 101, respiratory rate of 26, blood pressure 119/76. GENERAL: This is a chronically ill-appearing female patient who appears to be somnolent. She has a cervical collar in place. HEENT: Head demonstrates some abrasions to the left facial area. NECK: Has a cervical collar in place. LUNGS: Diminished. HEART: Irregular without murmur. ABDOMEN: Soft. Chest wall demonstrates an area of necrosis to the left lateral breast. There is also some pressure effect noted on the left iliac crest region and beneath the abdominal skin folds on the left side. EXTREMITIES: Lower extremities shows some what appear to be abrasions to the right anterior thigh. NEUROLOGIC: The patient is somnolent, does not follow commands. LABORATORY STUDIES: Sodium 141, potassium 3.6, chloride 116, CO2 of 24, BUN 81, [facility] [address] [place] [address] CONSULTATION Name: JOANN KING Room #: [facility] ADM IN .R.#: [id number] Admission: 05/22/19 Attend Phys: Antony Darden MD Discharge: Date of : 31 Report #: [id number] creatinine 1.8, glucose 169. Albumin is 3.2. White blood cell count 8.4 with hemoglobin of 13.8. CLINICAL IMPRESSION: 1. Unstageable pressure ulceration to the left breast. 2. Intertrigo to the left abdominal wall skin folds. 3. Abrasions to the right thigh. 4. Deep tissue injury to the left lower abdomen and pelvis region. 5. Acute renal failure. 6. Cerebrovascular accident. RECOMMENDATIONS: At this point in time, the patient will be placed on low air loss mattress with q. 2 hour turning and positioning. She will need antifungal barrier cream to the left breast covered with a bordered foam and then an antifungal barrier cream to the abdominal wall skin folds. She will need aggressive nutritional support. PRAFO boots for pressure prophylaxis. I appreciate being asked to see her in consultation. <ELECTRONICALLY SIGNED> By: Lane Shook MD 05/29/[id number] Shook MD /nt
[2019-05-29 09:29] LABS: ABSOLUTE NEUTROPHILS 8.1 thou/uL (1.4-8.2); BASOPHILS 0.2 % (0.0-2.0); EOSINOPHILS 1.5 % (0.0-3.0); HEMOGLOBIN 11.2 gm/dL (12.0-15.0); LYMPHOCYTES 7.1 % (24.0-44.0); MCH 29.4 pg (26.0-34.0); MCHC 32.1 g/dL (28.0-37.0); MCV 91.6 fL (80.0-100.0); MONOCYTES 11.1 % (1.0-8.0); PLATELET COUNT 188 thou/uL (150-400); POLYS 80.1 % (36.0-66.0); RBC 3.82 mil/uL (4.20-5.00); RDW 15.4 % (10.5-14.5); WBC 10.1 thou/uL (4.0-11.0)
[2019-05-29 09:44] LABS: CALCIUM 10.7 mg/dL (8.5-10.1); CREATININE 1.3 mg/dL (0.6-1.0); MAGNESIUM 1.2 mg/dL (1.8-2.4); POTASSIUM 4.1 mmol/L (3.5-5.1); TOTAL BILIRUBIN 1.2 mg/dL (<0.1-1.0); TOTAL PROTEIN 5.4 g/dL (6.4-8.2)
[2019-05-29 09:56] LABS: CALCIUM 10.7 mg/dL (8.5-10.1); CREATININE 1.4 mg/dL (0.6-1.0); PHOSPHORUS 3.7 mg/dL (2.5-4.9)
[2019-05-29 12:00] VITALS: BP 135/77
--- NOTE | 2019-05-29 12:00 | HC ---
[facility] [place] [address] CONSULTATION Name: JOANN KING Room #: [facility] ADM IN M.R.#: [id number] Admission: 05/22/19 Attend Phys: Antony Darden MD Discharge: Date of : 31 Report #: [id number] THIS REPORT FOR: //name// CC: Antony Do DATE OF SERVICE: 05/23/2019 HISTORY OF PRESENT ILLNESS: An 88-year-old -[place] female who was admitted to [facility] on 05/22/2019 after being found down with dense left-sided weakness and unresponsiveness. The patient lives in a Townhouse and was found by her daughter. She had emesis, loss of blood and stool on the floor. Rhythm showed atrial fibrillation. 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 Neurology saw her and has indicated a poor prognosis. MRI of the brain is currently pending. She is also noted to have some uremia with renal failure. She is currently in the ICU. We are seeing her in rehabilitation medicine consultation. PAST MEDICAL HISTORY: Includes atrial fibrillation. She has had a prior pulmonary embolism with pneumonia, history of hypertension. MEDICATIONS: Please see the full medication listing. ALLERGIES: SULFA. HABITS: No history of tobacco abuse. SOCIAL HISTORY: Lives in a Townhouse alone. No steps in. There are 5-6 steps up to her bedroom. There is an involved daughter. The daughter works. She works [employer] for more than [employer]. The patient was premorbidly ambulatory without gait aids. REVIEW OF SYSTEMS: Unobtainable. PHYSICAL EXAMINATION: GENERAL: An 88-year-old -[place] female seen in the ICU. NEUROLOGIC: She is not responsive for me. Upon opening her eyelids, I could not get her to fix or follow. She did not verbalize for me. If anything, she may have a right gaze preference. She will spontaneously move her right side, but she has flaccid involving the left side. She has the indwelling Barone catheter. IMPRESSION: An 88-year-old -[place] female with the following problem list: 1. Dense right middle cerebral artery stroke. [facility] [address] [place] [address] CONSULTATION Name: JOANN KING Room #: 208-P ADM IN M.R.#: [id number] Admission: 05/22/19 Attend Phys: Antony Darden MD Discharge: Date of : 31 Report #: [id number] 2. Mental status decrease with obtunded aeration and dense left flaccid plegia. 3. Atrial fibrillation with rapid ventricular rate. 4. Uremia with renal insufficiency. PLAN: Neurology input noted. They have given her poor prognosis. MRI of the brain is currently pending. Therapy evaluations will be underway and then will need to see how she does. At this point, we will follow along with you. Discussion was held with the patient's daughter. <ELECTRONICALLY SIGNED> By: Dutch Horn MD 05/29/19 1200 1127 1457 Dutch Horn MD /[facility]
--- NOTE | 2019-05-29 12:05 | NUR ---
ASSUMED CARE THIS AM, NON VERBAL, LEFT SIDED PARALYSIS. MULTIPLE AREAS OF ABRASIONS DUE TO FALL AT HOME. LEFT BREAST WITH DRAINING WOUND. SHOAIB PIV SALINE LOCK. BURTON PATENT AND DRAINING CLOUDY YELLOW URINE. HOSPICE SAW PATIENT TODAY AND WILL BE TRANSPORTED TO IN PATIENT AT 130PM. DOBHOFF REMOVED. WILL LEAVE BURTON AND IV AT HOSPICE REQUEST.
[2019-05-29] MEDS ORDERED: MORPHINE S10 MG/5 M2 PO (12:49)
[2019-05-29] MEDS ORDERED: ATIVAN0.5 M1 SUBLING (12:49)
--- NOTE | 2019-05-29 13:26 | NUR ---
PT DISCHARGING TODAY TO HOSPICE HOUSE FAXED DC ORDERS/SUMMARY TO FACILITY SPOKE WITH KRISTY IN INTAKE SHE RECEIVED DC ORDERS. TRANSPORT ARR[place] [place]. FAMILY NOTIFIED BY BERONICA, UNIT NOTIFIED AND CHART COPY PER US. RN TO CALL REPORT TO [phone].
== END 2019-05-29 14:32 | disposition hospice, inpatient (51) | DRG 64 ==
LOC: ER 11:18 → ICU 12:39 → EROBS 12:39 → ICU 12:46 → EROBS 13:08 → ICU 16:22 → 2N 05-25 17:49
PROVIDERS: Emergency Medicine; Internal Medicine; Nurse Practitioner; ADMIT Hospitalist
DX: I63.9 Cerebral infarction, unspecified (principal); J96.91 Respiratory failure, unspecified with hypoxia; J69.0 Pneumonitis due to inhalation of food and vomit; E43 Unspecified severe protein-calorie malnutrition; N17.9 Acute kidney failure, unspecified; I48.20 Chronic atrial fibrillation, unspecified; G81.94 Hemiplegia, unspecified affecting left nondominant side; D68.69 Other thrombophilia; E87.0 Hyperosmolality and hypernatremia; I10 Essential (primary) hypertension; H16.009 Unspecified corneal ulcer, unspecified eye; R79.89 Other specified abnormal findings of blood chemistry; D69.6 Thrombocytopenia, unspecified; Z66 Do not resuscitate; Z60.2 Problems related to living alone; L89.890 Pressure ulcer of other site, unstageable; S70.312A Abrasion, left thigh, initial encounter; R13.10 Dysphagia, unspecified; E78.00 Pure hypercholesterolemia, unspecified; I08.8 Other rheumatic multiple valve diseases; E11.65 Type 2 diabetes mellitus with hyperglycemia; W18.39XA Other fall on same level, initial encounter; E83.52 Hypercalcemia; Z68.22 Body mass index [BMI] 22.0-22.9, adult; Z87.01 Personal history of pneumonia (recurrent); Z86.711 Personal history of pulmonary embolism; Z79.899 Other long term (current) drug therapy; Z88.2 Allergy status to sulfonamides; Z91.14 Patient's other noncompliance with medication regimen; Z85.038 Personal history of other malignant neoplasm of large intestine; Z79.01 Long term (current) use of anticoagulants; Y93.89 Activity, other specified; Y92.89 Other specified places as the place of occurrence of the external cause; Y99.8 Other external cause status; Z51.5 Encounter for palliative care
CPT/HCPCS: 10078; 10081